=== PATIENT | male | born 1945 | race Caucasian/White ===

== ENCOUNTER → 2016-09-09 | Outpatient (CLI) | payer MEDICARE ==
[~2016-09-09] MED LIST: ASA325 MG PO; FLOMAX DPS0.4 MG PO; LEVAQUIN DPS500 MG PO; MIRALAX PACKET17 GM PO; OXY IR DPS5 MG PO; PEPCID DPS20 MG PO; SENOKOT S1 TAB PO; TYLENOL DPS325 MG PO; ULTRAM DPS50 MG PO
== END | disposition home or self-care (01) ==
LOC: PTH.S 11:12
DX: Z01.818 Encounter for other preprocedural examination (principal); R00.1 Bradycardia, unspecified; Z79.2 Long term (current) use of antibiotics

== ENCOUNTER 2016-09-14 09:45 | Inpatient (IN) | payer MEDICARE ==
[~2016-09-14] VITALS: Ht 167.6 cm; Wt 87.3 kg
--- NOTE | 2016-09-16 12:09 | HP ---
ADMIT: 09/14/2016 RM/LOC: [facility] MR#: [id number] [id number] [facility] [address] [place] [id number] KHOA [place] [address] Pre-OP History and Physical SEX: M AGE: 70 : 1945 DATE OF SERVICE: CHIEF COMPLAINT: Right knee chronic pain, swelling. HISTORY OF PRESENT ILLNESS: The patient is a 70-year-old male, who I have seen in the past for left knee degenerative joint disease. He has had problems with his knees for years. He gets fairly large effusions. Recently, he had another large effusion. We went ahead and tapped this, sent it off to the lab and he did have some pseudogout here. Severe arthrosis of the knee particularly medial compartment with complete loss of joint space, osteophyte formation. He has degenerative changes laterally and patellofemoral as well. At this point, he would like to proceed with a left total knee arthroplasty as these effusions and pain limit his activities severely. He gets night pain as well. Failed conservative treatment at this point. PAST MEDICAL HISTORY: Essentially negative. MEDICATIONS: The patient denies taking any medications. ALLERGIES: PENICILLIN. SOCIAL HISTORY: The patient denies alcohol or tobacco use. Lives in [place], [place]. REVIEW OF SYSTEMS: Noncontributory with the exception of his left knee symptoms pain. PHYSICAL EXAMINATION: HEENT: As per Dr. Campos's evaluation. HEART: As per Dr. Campos's evaluation. LUNGS: As per Dr. Campos's evaluation. ABDOMEN: As per Dr. Campos's evaluation. EXTREMITIES: Examination of the left knee, he does have some effusion here. Range of motion several degrees short of full extension. Flexion to about 100 degrees or so. No redness or warmth about the knee. No gross ligamentous instability; otherwise, distally, neurovascularly intact. IMAGING: X-rays of the knee show severe degenerative joint disease tricompartmentally, bone on bone medially, some defect in the tibia from ADMIT: 09/14/2016 RM/LOC: [facility] MR#: [id number] [address] [address] [address]OR [address] [place] [address] Pre-OP History and Physical SEX: M AGE: 70 : 1945 prolonged wear, subchondral sclerosis with osteophyte formation. ASSESSMENT: Left knee severe degenerative joint disease. The patient also has some pseudogout here. PLAN: At this point, the patient would like to proceed with a left total knee arthroplasty. The procedure as well as risks, benefits were discussed with the patient at length. Showed him a DVD on total knee arthroplasty in the office. He has seen Dr. Campos for medical clearance. He is cleared for surgery. Once again, we discussed the procedure as well as risks, benefits with him at length. Questions were answered. He does agree to proceed with left total knee arthroplasty at this time. Mario Brandt MD/ maggie JOB #: [id number] CC: Mario Brandt, Attending Physician UNKNOWN, Family Physician
--- NOTE | 2016-09-16 12:09 | OR ---
ADMIT: 09/14/2016 RM/LOC: 505 [facility] MR#: [id number] [address] [address] KHOA FLOR [address] [place] [address] Operative/Delivery Room Report SEX: M AGE: 70 : 1945 SURGERY DATE: 09/14/2016 SURGEON: Mario Brandt MD PREOPERATIVE DIAGNOSIS: Left knee severe degenerative joint disease with pseudogout. 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 PROCEDURE: Left total knee arthroplasty with extensive synovectomy. OPERATING ROOM AIDE: AAN Lund ANESTHESIA: Spinal. ESTIMATED BLOOD LOSS: Less than 50 mL. COMPLICATIONS: None. CONDITION: Fair to recovery room. IMPLANTS USED: We used a Synthes Sigma posterior stabilized total knee arthroplasty, a size 5 femoral component, a size 5 fixed bearing tibial component, a 38 mm patellar button, and a 12.5 tibial insert. We also used two batches of regular set Javier cement. INDICATIONS: The patient is a 70-year-old male with severe degenerative joint disease of the left knee and he also has pseudogout here. He develops painful effusions, significant pain in his knee with any activity. He has failed conservative treatment at this point and would like to proceed with a left total knee arthroplasty. The procedure as well as risks and benefits were discussed with the patient at length. Questions were answered and he did agree to proceed. PROCEDURE: After informed consent was obtained, the patient was taken to the operating room, placed on the operating room table in supine position. A spinal anesthetic was administered. After adequate spinal anesthesia, they attempted to place a Osullivan catheter, but they were unable do so. Dr. Ermias Guadalupe from Urology did come in and place a cystoscope guidewire, dilated a stricture in his urethra and was able to place a catheter. He recommended to keep the patient on Levaquin 500 mg one p.o. daily for approximately 7 to 10 days. Once this was completed, a tourniquet was then placed in the left upper thigh and left lower extremity was prepped and draped in usual sterile fashion. Once this was completed, the left lower extremity was exsanguinated, the tourniquet was inflated to 300 mmHg. Once this was completed, a midline incision was created through the skin and subcutaneous tissues making a bit of a medial flap in subcutaneous tissues here. A medial parapatellar incision was ADMIT: 09/14/2016 RM/LOC: 505 [facility] MR#: [id number] [address] [address] [address] FLOR [address] [place] [address] Operative/Delivery Room Report SEX: M AGE: 70 : 1945 then made to enter the knee joint. Once this was completed, the patient had an angry red kind of pedunculated synovium which we did an extensive synovectomy at this time, as well as debriding the synovium from the suprapatellar region. Once this was completed, the patella was then everted, knee flexed, and we excised the infrapatellar fat pad. Once this was completed, we then did a medial release using a Bovie electrocautery releasing the medial tissues off the proximal tibia. We then flexed the knee back up, placed the drill for the intramedullary guide into the distal femur. Intramedullary guide was then placed. This was set at 5 degrees of valgus to remove 13 mm of distal bone. This was then pinned and our distal femoral cut was then performed. Once this was completed, the tibial guide was then placed. Once this was in appropriate position, lined up with the second ray and along the anterior tibial crest, we pinned this into position to remove about 2 mm from the most affected medial side. We then made our tibial cut. The tibial bone was then removed. Once this was completed, we then brought the knee back in full extension and we placed a 10 mm spacer block with good full extension, maybe a little bit loose here. Once this was completed, a automated weaver was then placed. We excised the remainder of the meniscus and soft tissue here. Once this was all well cleaned up, the patella was then everted. We placed the patellar clamp to remove 9.5 mm from the patella and made our patellar cut. We then sized this to a size 38, placed the template, impacted this in position with a mallet and then drilled the lug holes for 38 mm patellar button. The 38 mm trial button was then placed. Patella was once again everted, knee was then flexed back up. We placed a femoral sizing guide onto the femur and pinned this into position in 3 degrees of external rotation and sized the femur to a size 5. The size five cutting block was then placed and actually placed 2 mm posteriorly, this was then pinned into position and our anterior, posterior, and chamfer cuts were then performed. Once this was completed, we then placed the size 5 box cutting guide pinned this into position made our box cut. We then trialed the knee with a size 5 femoral component, a size 5 tibial tray, and we initially tried with a 12.5 mm tibial insert. We got a good full extension, good flexion, good tracking of the patella, and good stability noted with this. Once this was completed, the knee was then flexed back up. We then drilled the lugs for the femoral component. The trial components were then removed. Medial, lateral, and posterior retractor was then placed. The tibia was then sized to a size 5. The size 5 tibial tray was then placed into position and pinned. We then prepared the proximal tibia using the reamer, followed by the keel punch. Once this was completed, the knee was then copiously irrigated once again. We brought back out in extension. We placed a automated weaver and injected the posterior, medial, and lateral capsules with the local anesthetic pain medicine. We also injected up into the gutters on both sides medially and laterally as well. Once this was all injected, the knee was then brought back into flexion as the components were opened on the back table to include a size 5 femoral component, size 5 tibial component, and a 38 mm patellar button. We flexed the knee back up, placed medial, lateral, and posterior retractors and began irrigating the bony ends. Once the components were opened on the back table, cement was then mixed. We dried the bony ends thoroughly. Once this was completed, the cement was ready, we placed a cement onto the tibia and packed ADMIT: 09/14/2016 RM/LOC: 505 [facility] MR#: [id number] [address] [address] K[address]A FLOR [address] [place] [address] Operative/Delivery Room Report SEX: M AGE: 70 : 1945 this with a finger into the tibial keel hole. We then placed the tibial component, impacted this into position. Removed the excess cement using a Leivasy elevator. Cement was then placed onto the distal femur, and the femoral component was then impacted into position with excess cement once again removed using a Leivasy elevator. Once this was completed, we then placed a 12.5 trial insert, put the heel on the table on a pad to hold the knee in full extension while the cement cured. Cement was then placed onto the patella, 38 mm patellar button was then placed. Patellar clamp was placed. The excess cement was removed using a Leivasy elevator. Once this was completed, the knee was then copiously irrigated. We injected additional local postoperative pain control in the quad tendon periosteal areas here. Once this was completed and the cement was cured, we then trialed this to 12.5 tibial insert once again with good full extension, good flexion, and good stability noted here. We then elected to use a 12.5 tibial component. The trial component was removed. Tibial tray was copiously irrigated. We then placed the permanent 12.5 insert into the tray, impacted this and locked this into position. Took the knee through range of motion once again, good full extension to 0 degrees, flexion past 120, good tracking of the patella and good stability. The knee was copiously irrigated one final time. A medium Hemovac drain was then placed. The medial parapatellar incision was then reapproximated using #1 Vicryl in a [id number] fashion. The wound was irrigated one final time. The subcutaneous tissues were injected with the remainder of the local for postoperative pain control. The subcutaneous tissues were then closed using 2- 0 Vicryl in a simple interrupted fashion. The skin with skin edi. A sterile compressive dressing was then applied consisting of Xeroform, plain gauze, ABDs, Webril, Aguila wrap from the foot to the thigh. The Hemovac reservoir was then placed to gravity. The patient was then transferred to recovery room in stable condition. Plan is to keep him on the Levaquin for 7 to 10 days as well as keep his Osullivan in for [address] Guadalupe. Mario Brandt MD/ maggie JOB #: [id number] CC: Mario Brandt, Attending Physician NO FAMILY PHYSICIAN, Family Physician
[2016-09-17] MEDS ORDERED: ASA325 MG PO (11:44)
[2016-09-17] MEDS ORDERED: PEPCID DPS20 MG PO (11:44)
[2016-09-17] MEDS ORDERED: LEVAQUIN DPS500 MG PO (11:45)
[2016-09-17] MEDS ORDERED: SENOKOT S1 TAB PO (11:45)
[2016-09-17] MEDS ORDERED: TYLENOL DPS325 MG PO (11:45)
[2016-09-17] MEDS ORDERED: ULTRAM DPS50 MG PO (11:45)
[2016-09-17] MEDS ORDERED: MIRALAX PACKET17 GM PO (11:45)
[2016-09-17] MEDS ORDERED: FLOMAX DPS0.4 MG PO (11:46)
[2016-09-17] MEDS ORDERED: OXY IR DPS5 MG PO (11:46)
--- NOTE | 2016-10-01 08:33 | OR ---
ADMIT: 09/14/2016 RM/LOC: W.01 [facility] MR#: [id number] [address] [place] [phone] [address] [place] [address] Operative/Delivery Room Report SEX: M AGE: 70 : 1945 SURGERY DATE: 09/14/2016 SURGEON: Ermias Guadalupe MD PREOPERATIVE DIAGNOSIS: Inability to place Osullivan catheter. POSTOPERATIVE DIAGNOSES: 1. Membranous urethral stricture. 2. Evidence of previous radical prostatectomy. 3. Normal cystoscopy. PROCEDURES: Cystoscopy, urethral dilation, and Osullivan catheter placement. ANESTHESIA: Spinal. INDICATION: The patient is a pleasant white male who I am asked to see after anesthesia has been achieved in the OR in preparation for left total knee arthroplasty under the care of Dr. Brandt. Nursing staff unable to place Osullivan catheter. Review of the patient's chart reveals no evidence of previous urologic intervention. I am asked to see the patient for Osullivan catheter placement. PROCEDURE IN DETAIL: Patient is on the table in supine position. I did go ahead and prep and drape the patient in usual sterile fashion. I did inject some lidocaine jelly. I did try to pass a 14-Turkmen catheter, met some resistance in the area of the bulbar membranous urethra. I decided to convert to a cystoscopy to further assess and treat urethral stricture that was expected. A 17-Turkmen flexible cystoscope was introduced into the urethra after repeat sterile prep and drape. The urethra was normal until I met the membranous urethra where the urethral stricture was identified. A Glidewire was advanced through the urethral stricture and into the bladder. The cystoscope was ADMIT: 09/14/2016 RM/LOC: W.01 [facility] MR#: [id number] [address] [place] [address], [place] [address] [address]OR [address] [place] [address] Operative/Delivery Room Report SEX: M AGE: 70 : 1945 removed. I did sequentially dilate the urethral stricture to 20-Turkmen using the Uday dilators. Followup cystoscopy demonstrated the stricture to be nicely dilated. The prostate to be absent, the bladder neck to be open, and the bladder mucosa to be normal. I confirmed position of the guidewire within the bladder lumen. The scope was withdrawn. A 16-Turkmen Winfield tip catheter was then passed per urethra into the bladder, the guidewire was removed. A 10 mL instilled in the Osullivan balloon and the Osullivan seats nicely at the bladder neck. The catheter was left to gravity drainage. The procedure was accomplished without complication. I recommended the patient continue with a week long course of Levaquin antibiotic therapy, continue Osullivan catheter for at least 48 hours. If any further difficulty should arise, they are to notify me. Ermias Guadalupe MD/ maggie JOB #: [id number] CC: Mario Brandt, Attending Physician NO FAMILY PHYSICIAN, Family Physician
--- NOTE | 2016-10-01 09:57 | DS ---
ADMIT: 09/14/2016 RM/LOC: 505 [facility] MR#: [id number] [address] [address] KHOA FLOR [place] [address] General Discharge Summary SEX: M AGE: 70 : 1945 ADMISSION DATE: 09/14/2016 DISCHARGE DATE: 09/16/2016 REASON FOR ADMISSION: Elective left total knee arthroplasty after failing conservative treatment. ACTIVE MEDICAL PROBLEMS: Severe degenerative joint disease in the left knee. PREOPERATIVE DIAGNOSIS: Left knee severe degenerative joint disease with pseudogout. 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 PROCEDURE PERFORMED: Left total knee arthroplasty with extensive synovectomy. SURGEON: Mario Brandt MD INTELLIGENCE OFFICER BASIC: ANA Lund ANESTHESIA: Spinal. ESTIMATED BLOOD LOSS: Less than 50 mL. COMPLICATIONS: None. HOSPITAL COURSE: The patient was admitted on 09/14/2016, for elective left total knee arthroplasty done successfully without any complications by Dr. Brandt at the beginning of the procedure. A Osullivan catheter placement was attempted, but failed. Dr. Guadalupe from Urology was consulted and placed a cystoscope wire, dilated a structure in the patient's urethra and was able to place the catheter. He recommended keeping the patient on Levaquin 500 mg once daily for approximately 7 to 10 days. The patient tolerated the procedure well. On postoperative day #1, the Hemovac drain was removed without any complications. Osullivan catheter was removed after 48 hours, and the patient was instructed to follow up with Urology in 2 weeks for urinalysis. As expected, he did suffer from acute blood loss anemia. His hemoglobin dropped to 11.1 on 09/15/2016, but increased to 11.4 on 09/16/2016, and remained hemodynamically stable without requiring blood transfusion. By postoperative day #2, the patient was doing well with physical therapy. He was safe stable and ready for discharge home with plans for outpatient physical therapy per total knee arthroplasty protocol. DISCHARGE MEDICATIONS: 1. Aspirin 325 mg at night for 6 weeks. 2. Pepcid 20 mg at night with aspirin. 3. Levofloxacin 500 mg daily for 8 days. 4. MiraLax 17 g everyday as needed. ADMIT: 09/14/2016 RM/LOC: 505 [facility] MR#: [id number] [address] [address] K[address]A [address]OR [address] [place] [address] General Discharge Summary SEX: M AGE: 70 : 1945 5. Senokot 2 tablets twice daily as needed. 6. Acetaminophen 650 mg every 6 hours as needed for pain. 7. Tramadol 50 mg 1 to 2 tablets every 6 hours as needed for pain. 8. Oxycodone IR 5 mg 1 to 2 tablets every 4 hours as needed for breakthrough pain. 9. Tamsulosin 0.4 mg every day. DISCHARGE INSTRUCTIONS: The patient was discharged home with plans for outpatient physical therapy per total knee arthroplasty protocol. Follow up in the orthopedic office in 2 weeks for wound check, in 6 weeks with x-ray. Follow up with Urology in 2 weeks for urinary analysis, and follow up with primary care as directed. ANA Dupont / Mario Brandt MD / maggie JOB #: [id number] CC: Mario Brandt MD, Attending Physician NO FAMILY PHYSICIAN, Family Physician
--- NOTE | 2016-10-04 08:35 | CO ---
ADMIT: 09/14/2016 RM/LOC: [facility] MR#: [id number] [facility] [address] [address] KHOA FLOR [address] [address] Consultation Report SEX: M AGE: 70 : 1945 DATE OF CONSULTATION: 09/09/2016 ATTENDING PHYSICIAN: Mario Brandt CONSULTING PHYSICIAN: Deandre Campos DO HISTORY OF PRESENT ILLNESS: This is a 70-year-old male patient, previously cared for by Dr. Pineda. He is planning to undergo a left total knee replacement. He has an underlying history of allergy to penicillin and hip surgery performed 4 years ago on the left side. SOCIAL HISTORY: Does not smoke or drink. MEDICATIONS: He takes no medicines. FAMILY HISTORY: Noncontributory. REVIEW OF SYSTEMS: Negative for chest pain, shortness of breath, cough, sputum production, fevers, chills, nausea, vomiting, diarrhea, constipation, hematemesis, hematochezia, or melena. On review of systems, he otherwise has never had a history of blood clotting and/or intolerance to aspirin or blood thinners. PHYSICAL EXAMINATION: GENERAL: He is pleasant, but marginally socializes. He states that his blood pressure shoots up when "people make me mad." VITAL SIGNS: His blood pressure today is 118/74, his weight is 192 pounds. He has a body mass index of 29.2. HEENT: Dentition is poor. Ear, nose, and throat negative. NECK: No JVD or bruit. HEART: Regular. LUNGS: Clear. ABDOMEN: Obese, round, soft, and nontender. EXTREMITIES: Reveal no edema. ADMIT: 09/14/2016 RM/LOC: [facility] MR#: [id number] [address] [place] [address] [place], [place] [address] [address] [place] [address] Consultation Report SEX: M AGE: 70 : 1945 LABORATORY DATA: EKG suggests a probable inferior AL by way of computer read. He does have a Q wave in lead III but lead II and aVF are normal. His BMP is essentially normal. His hemoglobin is 13.5 with white count 4.8. IMPRESSION: Degenerative joint disease in a generally healthy, asymptomatic 70-year-old male patient who denies any cardiovascular or pulmonary concerns or complaints at this time. PLAN: Proceed with surgery and we will provide aspirin as DVT prophylaxis. I broached the subject of post hospital care including skilled care, but he is adamant that he will return home even if he has no one to assist him with his day-to-day management. Deandre Campos DO/ maggie JOB #: [id number] CC: Mario Brandt, Attending Physician UNKNOWN, Family Physician
== END 2016-09-16 17:00 | disposition home or self-care (01) | DRG 470 ==
LOC: WOR 09:45 → 5MS 09:45
PROVIDERS: ADMIT Orthopaedic Surgery
PROC: 0T7D8ZZ Dilation of Urethra, Via Natural or Artificial Opening Endoscopic (ICD-10-PCS; principal; 2016-09-14)
PROC: 0SBD0ZZ Excision of Left Knee Joint, Open Approach (ICD-10-PCS; principal; 2016-09-14)
PROC: 0SRD0J9 Replacement of Left Knee Joint with Synthetic Substitute, Cemented, Open Approach (ICD-10-PCS; principal; 2016-09-14)
DX: M17.12 Unilateral primary osteoarthritis, left knee (principal); D62 Acute posthemorrhagic anemia; E66.9 Obesity, unspecified; N35.9 Urethral stricture, unspecified; M11.262 Other chondrocalcinosis, left knee; Z68.31 Body mass index [BMI] 31.0-31.9, adult

== ENCOUNTER 2016-09-17 08:24 | Emergency (ER) | payer MEDICARE ==
[2016-09-17] MEDS ORDERED: ASA325 MG PO (11:44)
[2016-09-17] MEDS ORDERED: PEPCID DPS20 MG PO (11:44)
[2016-09-17] MEDS ORDERED: LEVAQUIN DPS500 MG PO (11:45)
[2016-09-17] MEDS ORDERED: ULTRAM DPS50 MG PO (11:45)
[2016-09-17] MEDS ORDERED: MIRALAX PACKET17 GM PO (11:45)
[2016-09-17] MEDS ORDERED: SENOKOT S1 TAB PO (11:45)
[2016-09-17] MEDS ORDERED: TYLENOL DPS325 MG PO (11:45)
[2016-09-17] MEDS ORDERED: FLOMAX DPS0.4 MG PO (11:46)
[2016-09-17] MEDS ORDERED: OXY IR DPS5 MG PO (11:46)
--- NOTE | 2016-09-22 07:29 | ER ---
ADMIT: 09/17/2016 RM/LOC: ER [facility] MR#: [id number] [address] [address] [address]A FLOR [address] [place] [address] Emergency Room Report SEX: M AGE: 70 : 1945 DATE: 09/17/2016 CHIEF COMPLAINT: Unable to urinate. HISTORY OF PRESENT ILLNESS: The patient is a 70-year-old male, who 2 days ago had a left total knee performed. At that time, there was difficulty placing the Osullivan, so Dr. Guadalupe from Urology was contacted and he found that there was a membranous urethral stricture which he addressed with doing a dilation at that time. The patient was discharged home after he was able to urinate in the hospital but overnight states he was unable to urinate on his own. He presents to the ER this morning complaining of lower abdominal pain and inability to void. He states that he is having some discomfort in his left knee but it does not seem like his pain complaints are outside the norm of what you would expect normal postop. He has no other complaints at this time and denies chest pain, shortness of breath, fevers, chills, nausea, or vomiting. 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 SURGERIES: He has had a left total knee done 2 days ago and urethral dilation done 2 days ago. MEDICATIONS: See nurse's note. ALLERGIES: PENICILLIN. SOCIAL HISTORY: Denies smoking, drug, or alcohol use. PHYSICAL EXAMINATION: See T-sheet for complete exam. Focusing on the patient's abdomen, he does have suprapubic tenderness with firmness. His left knee shows he has a postop site to his left knee from his total knee with some very mild surrounding erythema, but does not look infectious. There is no drainage at this time. LABORATORY DATA: Bladder scan shows 826 mL. Urinalysis shows 1+ protein, 1+ ketones, 2+ blood. ADMIT: 09/17/2016 RM/LOC: ER [facility] MR#: [id number] [address] [address] [place] [address] Emergency Room Report SEX: M AGE: 70 : 1945 EMERGENCY DEPARTMENT COURSE: After we got the bladder scan, it showed the patient did have significant bladder distention and a Osullivan was placed without difficulty. The patient is feeling much better afterwards. We will continue the patient on Levaquin and I will provide him prescription as I believe the length of prescription he had after his postop would not last him for the next week. I spoke to Dr. Guadalupe who is on for Urology who performed his procedure and he will see the patient in a week in followup. I did attempt to get a hold of Dr. 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 DIAGNOSIS: Urinary retention. Mario Paris MD/ maggie JOB #: [id number] CC: Mario Paris MD, Attending Physician UNKNOWN, Family Physician
== END 2016-09-17 10:20 | disposition home or self-care (01) ==
LOC: ER 08:24
PROC: 0T9B70Z Drainage of Bladder with Drainage Device, Via Natural or Artificial Opening (ICD-10-PCS; principal; 2016-09-17)
PROC: 4A0D7BZ Measurement of Urinary Pressure, Via Natural or Artificial Opening (ICD-10-PCS; 2016-09-17)
DX: R33.9 Retention of urine, unspecified (principal); Z88.0 Allergy status to penicillin; Z79.82 Long term (current) use of aspirin; Z79.899 Other long term (current) drug therapy